=== PATIENT | male | born 1965 | race Asian ===

== ENCOUNTER 2020-12-12 11:08 | Inpatient (IN) | payer OTHER ==
[~2020-12-12] VITALS: Ht 167.6 cm; Wt 59.9 kg
[2020-12-12 11:16] VITALS: Ht 167.6 cm; Wt 59.9 kg
[2020-12-12 12:38] LABS: BILIRUBIN TOTAL 1.48 mg/dL (0.20-1.00); CALCIUM 7.4 mg/dL (8.5-10.1); CARBON DIOXIDE 14.1 mmol/L (21-32)
[2020-12-12 12:39] LABS: ALBUMIN 1.6 g/dL (3.4-5.0); TOTAL PROTEIN, SERUM 5.1 g/dL (6.4-8.2)
[2020-12-12 12:41] LABS: POTASSIUM SERUM 5.7 mmol/L (3.5-5.1)
[2020-12-12 13:14] LABS: PLATELET COUNT 96 x10^3mcL (152-348); RED CELL DISTRIBUTION WIDTH 15.1 % (12.1-16.2)
[2020-12-12 13:54] LABS: BAND NEUTROPHIL 1 % (0-10); MONOCYTE 4 % (0-7); SEGMENTED NEUTROPHILS 91 % (37-75)
[2020-12-12 13:55] LABS: rbc morphology (normal/abnorm) ABNORMAL (NORMAL)
[2020-12-12 15:03] LABS: UA SPECIFIC GRAVITY 1.015 (1.005-1.035); microscopic required? YES; urine erythrocyte 3+ (NEGATIVE)
[2020-12-12 15:42] LABS: CHOLESTEROL/HDL RATIO 7.4
[2020-12-12 17:49] VITALS: BP 87/38
[2020-12-12 18:00] VITALS: BP 83/58
[2020-12-13 00:56] VITALS: BP 106/73
[2020-12-13 04:35] VITALS: BP 113/71
[2020-12-13 05:59] LABS: CALCIUM 7.8 mg/dL (8.5-10.1); CARBON DIOXIDE 17.8 mmol/L (21-32); PHOSPHOROUS 7.6 mg/dL (2.5-4.9); POTASSIUM SERUM 4.4 mmol/L (3.5-5.1)
[2020-12-13 06:01] LABS: CREATININE SERUM 7.2 mg/dL (0.7-1.3)
[2020-12-13 06:09] LABS: PLATELET COUNT 83 x10^3mcL (152-348); RED CELL DISTRIBUTION WIDTH 15.4 % (12.1-16.2)
[2020-12-13 08:00] VITALS: BP 101/68
[2020-12-13 09:49] LABS: BAND NEUTROPHIL 3 % (0-10); MONOCYTE 2 % (0-7); PLATELET MORPHOLOGY PLATELETS DECREASED; SEGMENTED NEUTROPHILS 91 % (37-75); rbc morphology (normal/abnorm) ABNORMAL (NORMAL)
[2020-12-13 12:00] VITALS: BP 96/64
[2020-12-13 12:50] LABS: BILIRUBIN DIRECT 0.82 mg/dL (0.0-0.2); BILIRUBIN TOTAL 1.05 mg/dL (0.20-1.00)
[2020-12-13 12:58] LABS: ALBUMIN 1.5 g/dL (3.4-5.0); TOTAL PROTEIN, SERUM 5.9 g/dL (6.4-8.2)
[2020-12-13 16:00] VITALS: BP 102/62
[2020-12-13 20:09] VITALS: BP 95/63
[2020-12-14 00:15] VITALS: BP 95/59
[2020-12-14 04:00] VITALS: BP 110/64
[2020-12-14 06:10] LABS: BASOPHIL % 0.2 % (0.2-1.5)
[2020-12-14 06:23] LABS: CALCIUM 7.8 mg/dL (8.5-10.1); CARBON DIOXIDE 23.6 mmol/L (21-32); MAGNESIUM 2.5 mg/dL (1.8-2.4); PHOSPHOROUS 4.3 mg/dL (2.5-4.9)
[2020-12-14 06:24] LABS: PLATELET COUNT 55 x10^3mcL (152-348); RED CELL DISTRIBUTION WIDTH 15.2 % (12.1-16.2)
[2020-12-14 06:44] LABS: CREATININE SERUM 4.2 mg/dL (0.7-1.3)
[2020-12-14 08:00] VITALS: BP 103/76
[2020-12-14 12:00] VITALS: BP 97/64
[2020-12-14 16:00] VITALS: BP 92/56
== END 2020-12-14 23:06 | disposition short-term general hospital (02) | DRG 871 ==
LOC: ED 11:08 → IC 15:10
PROVIDERS: Emergency Medicine; ADMIT Internal Medicine; ATTEND Internal Medicine
PROC: 02H633Z Insertion of Infusion Device into Right Atrium, Percutaneous Approach (ICD-10-PCS; principal; 2020-12-12)
PROC: B548ZZA Ultrasonography of Superior Vena Cava, Guidance (ICD-10-PCS; 2020-12-12)
DX: A41.9 Sepsis, unspecified organism (principal); R65.21 Severe sepsis with septic shock; I21.A1 Myocardial infarction type 2; N17.0 Acute kidney failure with tubular necrosis; E43 Unspecified severe protein-calorie malnutrition; I50.41 Acute combined systolic (congestive) and diastolic (congestive) heart failure; E87.1 Hypo-osmolality and hyponatremia; D68.9 Coagulation defect, unspecified; N13.6 Pyonephrosis; I42.9 Cardiomyopathy, unspecified; Z20.822 Contact with and (suspected) exposure to COVID-19; M10.9 Gout, unspecified; E87.5 Hyperkalemia; E86.0 Dehydration; D64.9 Anemia, unspecified; I34.0 Nonrheumatic mitral (valve) insufficiency; N18.9 Chronic kidney disease, unspecified; D63.8 Anemia in other chronic diseases classified elsewhere; E78.1 Pure hyperglyceridemia; D69.6 Thrombocytopenia, unspecified; K52.9 Noninfective gastroenteritis and colitis, unspecified; Z88.8 Allergy status to other drugs, medicaments and biological substances; Z68.20 Body mass index [BMI] 20.0-20.9, adult; Z79.899 Other long term (current) drug therapy
CPT/HCPCS: 36600; 83880; 87046; 87046-59; C9113; G0378; J0610; J1956; J2543; J3490; J7030; P9047; U0003